=== PATIENT | female | born 1940 | race Caucasian/White ===

== ENCOUNTER 2017-01-16 07:44 | Inpatient (IN) | payer OTHER ==
[~2017-01-16] VITALS: Ht 157.5 cm; Wt 45.4 kg
--- NOTE | ~2017-01-16 | H ---
[facility] [place] [address] HISTORY AND PHYSICAL Name: AMIRAH HOGNA Room #: 410-P ADM IN M.R.#: [id number] Admission: 01/16/17 Attend Phys: Galen Vail MD Discharge: Date of : 40 Report #: [id number] THIS REPORT FOR: //name// CC: Lyndon Vail DATE OF SERVICE: 01/16/2017 CHIEF COMPLAINT: Abdominal pain. HISTORY OF PRESENT ILLNESS: Ms. Hogan is a 76-year-old female from [facility]; was admitted with nausea, vomiting, abdominal pain. She reported intermittent lower abdominal pain with some vomiting and diarrhea. There was no overt report of bleeding, although the nursing staff today stated she had another episode of diarrhea with scant blood. 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 PAST SURGICAL HISTORY: As above. FAMILY HISTORY: Noncontributory. SOCIAL HISTORY: She has been living in the retirement for 4 years or longer. No current alcohol or tobacco use. ALLERGIES: ZOSYN. MEDICATIONS: Norvasc, aspirin, labetalol, lisinopril, clonidine, Lasix, potassium, tramadol. REVIEW OF SYSTEMS: She states she is feeling fine. Denies any diarrhea, although nursing reports she just had an episode. Denies chest pain, shortness of breath, nausea, vomiting, abdominal pain. OBJECTIVE: VITAL SIGNS: Temperature 36.4, pulse rate 83, respirations 16, blood pressure 118/36. GENERAL: She is awake and alert, lying in bed, in no distress. LUNGS: Clear with no wheezing. HEART: Regular, without murmur. ABDOMEN: Soft, normoactive bowel sounds. EXTREMITIES: No cyanosis, clubbing or edema. Surgically amputated left leg with amputation of right forefoot. NEUROLOGIC: She moves all extremities equally. [facility] [address] [place] [address] HISTORY AND PHYSICAL Name: AMIRAH HOGAN Room #: [address] [place] [address] IN ..#: [id number] Admission: 01/16/17 Attend Phys: Galen Vail MD Discharge: Date of : 40 Report #: [id number] LABORATORY DATA REVIEW: Her white count was 19, hemoglobin 7.9. ASSESSMENT: 1. Colitis. 2. Anemia of chronic disease. 3. Peripheral artery disease. PLAN: Continue antibiotics for supportive measures at this time, with GI services following her as well to see if endoscopy is indicated. <ELECTRONICALLY SIGNED> By: Artie Pope MD 01/19/17 [id number] [id number] Artie Pope MD /nt
--- NOTE | ~2017-01-16 | HC ---
[facility] [place] [address] CONSULTATION Name: AMIRAH AARON Room #: 410-P ADM IN M.R.#: [id number] Admission: 01/16/17 Attend Phys: Galen Vail MD Discharge: Date of : 40 Report #: [id number] THIS REPORT FOR: //name// CC: OXANA Vail GASTROINTESTINAL CONSULTATION REPORT REASON FOR CONSULTATION: The patient is a 76-year-old woman who is admitted reportedly with nausea, vomiting and lower abdominal pain. HISTORY OF PRESENT ILLNESS: This patient was seen and examined. However, she in essence states that she is just fine and denies any problems or issues at this time. According to the nursing staff and the medical record, she was admitted through the nursing facility with 3 days of abdominal pain as well as nausea and vomiting. Initially, she tells me she does not have nausea, vomiting, or abdominal pain, but later does admit that she did have those recently, but they have resolved and just she is fine right now. She is asking the nursing staff if she can eat. She gives minimal information with regard to history, much of history is obtained from review of the old medical record. Upon evaluation in the Emergency Room at [facility], she did have a CT scan of the abdomen and pelvis, which reveals mild thickening of the distal colon raising the possibility of mild colitis, diverticulitis was not seen. She has a few small gallstones, but no criteria for cholecystitis. A liver cyst was seen. The aortic and iliac vessels are densely calcified. Bladder is enlarged suggesting hypertrophy. There was a moderate hiatus hernia with fluid in the stomach and incidental findings of cecum aligned in the medial right pelvis and the ascending colon was also in an ectopic location. Laboratory studies revealed normal sodium, potassium diminished at 3.4, CO2 of 27, BUN of 42 with creatinine of 1.1, albumin of 2.8. Lactic acid was initially 29, on repeat later this morning was 2.2. Troponin less than 0.04. White count of 19,300. She is anemic with hemoglobin of 7.9, in March2013, it was 14.5, and platelet count of 313,000. PAST MEDICAL HISTORY: Obtained primarily from the medical record. She has had a CVA in the past, high blood pressure, pneumonia. There has been a component of dementia. She has also been treated for depression and dysphagia and COPD as well as previous myocardial infarction, respiratory arrest and peripheral vascular disease. She has a right wfgir-uxa-sign amputation. ALLERGIES: PIPERACILLIN and TAZOBACTAM. CURRENT MEDICATIONS: The patient says she does not know her medicines and does not want to know them. Ambulatory medicines listed in the system include acetaminophen, amlodipine 10 mg daily, aspirin 81 mg daily, Keflex 500 mg [address] [address] CONSULTATION Name: AMIRAH AARON Room #: 410-P [facility] IN M.R.#: [id number] Admission: 01/16/17 Attend Phys: Galen Vail MD Discharge: Date of : 40 Report #: [id number] times daily for 7 days, [id number]-7 patch, furosemide 20 mg daily, labetalol 200 mg twice daily, lisinopril 20 mg twice daily, multivitamin with C, nitroglycerin transdermal 0.4 mg daily, potassium chloride 10 mEq daily, tramadol 50 mg . FAMILY HISTORY: The patient denies family history of colon cancer or colitis. SOCIAL HISTORY: Lives in a nursing facility. He is a former cigarette smoker. Does not consume alcohol. REVIEW OF SYSTEMS: I went through 14-point review with the patient and she denies all questions and said that everything is fine and there is nothing wrong with her. PHYSICAL EXAMINATION: GENERAL: Elderly woman who is awake, alert. She is in no acute distress. VITAL SIGNS: Blood pressure 119/44, pulse of 68. HEENT: Anicteric. Pupils equal and round. She has a very poor dentition. NECK: Supple without thyromegaly. CHEST: Clear anteriorly. HEART: Regular rate and rhythm, S1, S2. ABDOMEN: Normal bowel sounds, soft, nontender without hepatosplenomegaly or masses. RECTAL: Deferred at this time. EXTREMITIES: Revealed the right qfxai-ycc-bpbj amputation, trace edema of the left lower extremity. NEUROLOGIC: She is aware of her location. She knows the month and the year. She knows it is Monday, but she is not aware that it is a holiday, Labour Day. ASSESSMENT: 1. Nausea and vomiting, questionably improved. Nurses report they have not seen any since her admission. 2. Abdominal pain, questionably improved. Nurses reports she has not had complaints of abdominal pain. 3. Thickened colon on the CT, questionable significance. 4. Mild lactic acidosis, improved. 5. Acute kidney injury with elevated BUN. 6. Coronary artery disease. 7. Chronic obstructive pulmonary disease. 8. Cerebrovascular disease with previous cerebrovascular accident. 9. Peripheral vascular disease with previous right above the knee amputation. 10. Dementia. 11. History of pneumonia. 12. History of dysphagia. 13. Anemia. [facility] [address] [place] [address] CONSULTATION Name: AMIRAH AARON Room #: 410-P [facility] IN [facility]#: [id number] Admission: 01/16/17 Attend Phys: Galen Vail MD Discharge: Date of : 40 Report #: [id number] COMMENT: Discussed with the patient as noted. Also discussed with nursing staff and they have a little further to add. Clinically, she appears stable at this point in time, although elevated lactate suggests there may have been an intraabdominal process, but she has benign abdomen. She is also noted to be anemic and there has been a significant decline in her hemoglobin based on data available in the computer. Currently hemoglobin of 7.9, in March 2013, it was 14.5. PLAN: 1. I have placed a phone call to her son in [facility], no answer and left a message for him to call. 2. Monitor for other signs and symptoms of an abdominal process. 3. Consider evaluation for anemia, we will obtain iron studies and stool Hemoccult as well as B12 and folate. 4. Consider endoscopic evaluation; however, at this point, I think I am doubtful that she will cooperate and consent 5. Await further input from primary physician. <ELECTRONICALLY SIGNED> By: Ko Tyler MD 01/17/17 1601 [id number] Ko Tyler MD /nt
--- NOTE | ~2017-01-16 | D ---
[facility] [place] [address] DISCHARGE SUMMARY Name: AMIRAH AARON Room #: 410-P [facility] IN M.R.#: [id number] Admission: 01/16/17 Attend Phys: Galen Vail MD Discharge: 01/19/17 Date of : 40 Report #: [id number] THIS REPORT FOR: //name// CC: Lyndon Vail FINAL DIAGNOSES: 1. Acute Clostridium difficile colitis. 2. Lower gastrointestinal bleed due to the above. 3. Anemia of chronic blood loss. 4. Hypertension. 5. Cerebrovascular disease. 6. Vascular dementia. 7. Hypokalemia. HOSPITAL COURSE: The patient was admitted with abdominal pain, nausea, vomiting, diarrhea, and concern of GI bleed. There was scant blood in the stool, sample was positive for C. diff and she was started on treatment. She was seen by the GI service with plans for intervention. Due to her dementia, she was refusing care, often pulling out her IV, refusing IV medications, iron and refused blood transfusion on multiple attempts. Her son was aware of these issues. Ultimately, the plan was conservative treatment. From a vital signs point of view, she was stable. PHYSICAL EXAMINATION: GENERAL: On the day of discharge, she was awake and alert, sitting up in bed, in no distress. VITAL SIGNS: Temperature 36.6, pulse 85, respirations 16, and blood pressure 149/63. LUNGS: Clear. HEART: Regular. ABDOMEN: Soft, normoactive bowel sounds. EXTREMITIES: No edema. DISPOSITION: She will be discharged to [facility]. I will follow her stay there. I have ordered her medications, therapy, diet, antibiotics with vancomycin to continue for 2 weeks and follow up lab data. She will resume code status, which I believe was DNR. <ELECTRONICALLY SIGNED> By: Artie Pope MD 01/24/17 0923 [id number] Artie Pope MD /nt
[~2017-01-16 07:44] MED LIST: APAP500 PO; B COMPLEX WITH1 EACH PO; BAYER CHEWABLE81 MG PO; CATAPRES-TTS 20.2 MG PO; K-DUR10 MEQ PO; KEFLEX500 MG PO; LASIX 20 MG TAB20 MG PO; LISINOPRIL20 MG PO; NITRO-DUR1 EAC1 TRANSDERM; NORVASC10 MG PO; THERA-M CAPLET1 EAC1 PO; TRAMADOL 50 MG50 MG PO; TRANDATE 200 M200 M1 PO
[2017-01-16 07:45] VITALS: BP 110/44
[2017-01-16 08:19] LABS: HEMATOCRIT 23.3 % (37.0-47.0); HEMOGLOBIN 7.9 gm/dL (12.0-15.0); MCH 28.8 pg (26.0-34.0); MCHC 33.7 g/dL (28.0-37.0); MCV 85.7 fL (80.0-100.0); PLATELET COUNT 313 thou/uL (150-400); RBC 2.73 mil/uL (4.20-5.00); RDW 14.8 % (10.5-14.5); WBC 19.3 thou/uL (4.0-11.0)
[2017-01-16 08:23] LABS: ANION GAP 12 mmol/L (7-16); BUN 42 mg/dL (7-18); CALCIUM 8.4 mg/dL (8.5-10.1); CHLORIDE 102 mmol/L (98-107); CO2 27 mmol/L (21-32); CREATININE 1.1 mg/dL (0.6-1.0); GLUCOSE 121 mg/dL (74-106); POTASSIUM 3.4 mmol/L (3.5-5.1); SODIUM 141 mmol/L (136-145)
[2017-01-16 08:31] LABS: ALBUMIN 2.8 g/dL (3.4-5.0); SGOT 39 U/L (15-37); SGPT 29 U/L (30-65); TOTAL BILIRUBIN 0.8 mg/dL (<0.1-1.0); TOTAL PROTEIN 5.2 g/dL (6.4-8.2); TROPONIN-I < 0.04 ng/mL (<0.04-0.07)
[2017-01-16 08:39] LABS: URINE BILIRUBIN NEGATIVE (Negative); URINE BLOOD NEGATIVE (Negative); URINE COLOR YELLOW; URINE GLUCOSE-RANDOM* NEGATIVE (Negative); URINE KETONES NEGATIVE (Negative); URINE LEUKOCYTES-REFLEX NEGATIVE (Negative); URINE PROTEIN (DIPSTICK) NEGATIVE (Negative); URINE SPECIFIC GRAVITY 1.015 (1.003-1.035); URINE UROBILINOGEN 0.2 E.U./dl (0.2-1.0)
[2017-01-16 08:42] LABS: ALKALINE PHOSPHATASE 63 U/L (46-116)
[2017-01-16 08:55] LABS: MANUAL DIFF YES
[2017-01-16 09:40] LABS: ABSOLUTE NEUTROPHILS 18.5 thou/uL (1.4-8.2); ANISOCYTOSIS 1+; POLYCHROMASIA OCCASIONAL; TOTAL CELL COUNT 100
[2017-01-16 10:02] VITALS: BP 122/35
[2017-01-16 10:34] VITALS: BP 115/45
[2017-01-16 11:26] VITALS: BP 119/44
[2017-01-16 16:14] VITALS: BP 113/39
[2017-01-16 16:25] LABS: OBSERVED RETIC COUNT 1.72 % (0.6-2.6)
[2017-01-16 16:31] LABS: ABSOLUTE RETIC COUNT 0.0502 10^6/uL
[2017-01-16 16:54] LABS: FOLIC ACID 18.3 ng/mL (8.6-58.9)
[2017-01-16 17:06] LABS: % SATURATION 34 % (20-39); IRON 57 ug/dL (50-170); TIBC 170 ug/dL (250-450); UIBC 113 ug/dL
[2017-01-16 19:02] VITALS: BP 103/41
[2017-01-17 03:40] VITALS: BP 131/42
[2017-01-17 07:15] VITALS: BP 118/36
[2017-01-17 08:46] VITALS: BP 118/36
[2017-01-17 17:20] VITALS: BP 121/53
[2017-01-17 20:00] VITALS: BP 109/45
[2017-01-18 04:00] VITALS: BP 101/51
[2017-01-18 06:21] LABS: MCH 28.8 pg (26.0-34.0); MCHC 33.2 g/dL (28.0-37.0); MCV 86.7 fL (80.0-100.0); RBC 2.09 mil/uL (4.20-5.00); RDW 14.7 % (10.5-14.5)
[2017-01-18 06:30] LABS: CREATININE 0.7 mg/dL (0.6-1.0)
[2017-01-18 06:40] LABS: HEMATOCRIT 18.1 % (37.0-47.0)
[2017-01-18 06:47] LABS: POTASSIUM 2.8 mmol/L (3.5-5.1)
[2017-01-18 08:45] VITALS: BP 108/42
[2017-01-18 15:45] VITALS: BP 121/54
[2017-01-18 20:00] VITALS: BP 137/48
[2017-01-19 04:00] VITALS: BP 122/50
[2017-01-19 07:30] VITALS: BP 149/63
[2017-01-19] MEDS ORDERED: VANCOMYCIN HCL10 GM PO (09:58)
[2017-01-19] MEDS ORDERED: ACETAMINOPHEN325 M1 PO (09:58)
== END 2017-01-19 15:52 | DRG 871 ==
LOC: ER 07:44 → 4N 09:50 → EROBS 09:50 → 4N 10:35
PROVIDERS: Emergency Medicine; Internal Medicine Geriatric Medicine; Specialist
DX: A41.9 Sepsis, unspecified organism (principal); N17.0 Acute kidney failure with tubular necrosis; E43 Unspecified severe protein-calorie malnutrition; A04.7 Enterocolitis due to Clostridium difficile; N17.9 Acute kidney failure, unspecified; E87.2 Acidosis; K92.2 Gastrointestinal hemorrhage, unspecified; J44.9 Chronic obstructive pulmonary disease, unspecified; F32.9 Major depressive disorder, single episode, unspecified; I25.10 Atherosclerotic heart disease of native coronary artery without angina pectoris; D64.9 Anemia, unspecified; D63.8 Anemia in other chronic diseases classified elsewhere; I73.9 Peripheral vascular disease, unspecified; F03.90 Unspecified dementia, unspecified severity, without behavioral disturbance, psychotic disturbance, mood disturbance, and anxiety; E87.6 Hypokalemia; I10 Essential (primary) hypertension; Z86.73 Personal history of transient ischemic attack (TIA), and cerebral infarction without residual deficits; I25.2 Old myocardial infarction; Z88.1 Allergy status to other antibiotic agents; Z89.611 Acquired absence of right leg above knee; Z87.891 Personal history of nicotine dependence
CPT/HCPCS: 10091

== ENCOUNTER → 2017-02-13 06:52 | Emergency (ER) | payer OTHER ==
[~2017-02-13] VITALS: Ht 157.5 cm; Wt 49.9 kg
[~2017-02-13 06:52] MED LIST changes: +ACETAMINOPHEN325 M1 PO; +VANCOMYCIN HCL10 GM PO
== END ==
LOC: ER 06:52
DX: I46.9 Cardiac arrest, cause unspecified (principal); J44.9 Chronic obstructive pulmonary disease, unspecified; I10 Essential (primary) hypertension; F32.9 Major depressive disorder, single episode, unspecified; I25.2 Old myocardial infarction; F03.90 Unspecified dementia, unspecified severity, without behavioral disturbance, psychotic disturbance, mood disturbance, and anxiety; Z87.01 Personal history of pneumonia (recurrent); I73.9 Peripheral vascular disease, unspecified; F10.99 Alcohol use, unspecified with unspecified alcohol-induced disorder; Z86.73 Personal history of transient ischemic attack (TIA), and cerebral infarction without residual deficits; Z88.0 Allergy status to penicillin; Z88.8 Allergy status to other drugs, medicaments and biological substances